=== PATIENT | female | born 1995 | race African-American/Black ===

== ENCOUNTER 2017-09-24 19:29 | Emergency (ER) | payer SELFPAY ==
[~2017-09-24] VITALS: Ht 165.1 cm; Wt 63.5 kg
[2017-09-24 19:30] VITALS: BP 139/82
[2017-09-24] MEDS ORDERED: TRAM-48 PO (19:52)
--- NOTE | 2017-09-24 19:52 | PHYS DOC ---
Past Medical History Past Medical History: Other Additional Past Medical Histor: JEFFREY Past Surgical History: Other Additional Past Surgical Histo: JEFFREY L THIGH/R CALF Alcohol Use: Rarely Drug Use: Marijuana Adult General Chief Complaint Chief Complaint: MENSTRUAL PAIN/CRAMPS [facility] HPI Patient is a 22 year old female who presents with painful menstrual cramps that began this morning. She is currently on her normal menstrual cycle. She states she is on depo shots and does not get periods every month but when she does get them she cramps. She states she has tried Midol as well as ibuprofen with no relief. Patient denies bleeding more than normal. Review of Systems Review of Systems Constitutional: Denies fever or chills [] Eyes: Denies change in visual acuity, redness, or eye pain [] HENT: Denies nasal congestion or sore throat [] Respiratory: Denies cough or shortness of breath [] Cardiovascular: No additional information not addressed in HPI [] GI: Reports abdominal cramping, denies nausea, vomiting, bloody stools or diarrhea [] : Denies dysuria or hematuria [] Musculoskeletal: Denies back pain or joint pain [] Integument: Denies rash or skin lesions [] Neurologic: Denies headache, focal weakness or sensory changes [] All other systems were reviewed and found to be within normal limits, except as documented in this note. Allergies Allergies Allergies Coded Allergies Type Severity Reaction Last Updated Verified No Known Drug Allergies 09/24/17 No Physical Exam Physical Exam Constitutional: Well developed, well nourished, no acute distress, non-toxic appearance. [] HENT: Normocephalic, atraumatic, bilateral external ears normal, oropharynx moist, no oral exudates, nose normal. [] Eyes: PERRLA, EOMI, conjunctiva normal, no discharge. [] Neck: Normal range of motion, no tenderness, supple, no stridor. [] Cardiovascular:Heart rate regular rhythm, no murmur [] Lungs & Thorax: Bilateral breath sounds clear to auscultation [] Abdomen: Bowel sounds normal, soft, no tenderness, no masses, no pulsatile masses. [] Skin: Warm, dry, no erythema, no rash. [] Back: No tenderness, no CVA tenderness. [] Extremities: No tenderness, no cyanosis, no clubbing, ROM intact, no edema. [] Neurologic: Alert and oriented X 3, normal motor function, normal sensory function, no focal deficits noted. [] Psychologic: Affect normal, judgement normal, mood normal. [] Current Patient Data Vital Signs Vital Signs Date Time Temp Pulse Resp B/P (MAP) Pulse Ox O2 Delivery O2 Flow Rate FiO2 09/24/17 19:30 98.2 87 18 99 Room Air 98.2 EKG EKG [] Radiology/Procedures Radiology/Procedures [] Course & Med Decision Making Course & Med Decision Making Pertinent Labs and Imaging studies reviewed. (See chart for details) Patient is in the ED with complaints of dysmenorrhea, she is currently on depot shots and denies any chance she is . She has tried Midol and ibuprofen with no relief. We discharged with Ultram. She is to follow-up with her [employer] [employer] next week. Dragon Disclaimer Dragon Disclaimer This electronic medical record was generated, in whole or in part, using a voice recognition dictation system. Departure Departure Impression: Primary Impression: Dysmenorrhea Disposition: 01 HOME, SELF-CARE Condition: STABLE Patient Instructions: Dysmenorrhea Additional Instructions: You were seen with dysmenorrhea which is painful menstrual cramping. Please follow-up with your [employer] next week. Take the prescribed medicines as ordered. Do not drive on the prescribed medication. You can apply heat to your abdomen and back it will help with the cramping pain. Scripts Tramadol Hcl (ULTRAM) 50 Mg Tablet 1 TAB PO Q6HRS, #30 TAB Prov: HERBERTH PALACIOS APRN 09/24/17 HERBERTH PALACIOS APRN Sep 24, 2017 19:52
== END 2017-09-24 19:55 | disposition home or self-care (01) ==
LOC: ER 19:29
DX: N94.6 Dysmenorrhea, unspecified (principal); F12.10 Cannabis abuse, uncomplicated
CPT/HCPCS: 99283